=== PATIENT | female | born 1950 | race Caucasian/White ===

== ENCOUNTER 2018-12-25 21:16 | Emergency (ER) | payer OTHER, BC ==
[2018-12-25 21:28] VITALS: TEMP 98; BMI 32.8
--- NOTE | 2018-12-25 22:20 | PDOC ---
History of Present Illness <Hafsa Prater - Last Filed: 12/26/18 01:26> - General History Source: Patient Exam Limitations: No Limitations <Emil Ralph - Last Filed: 12/26/18 04:11> - General Chief Complaint: Chest Pain Stated Complaint: CHEST PAIN Time Seen by Provider: 12/25/18 21:54 - History of Present Illness Initial Comments: 12/25/18 22:00 Patient is a 68 year old female with h/o HTN, HLD, dementia, abdominal plasty, breast augmentation, c/o chest pain substernal area, left arm, across the shoulder and right neck since the morning. Pain is 7/10 and the chest pain is worse with breathing. She is unable to take a deep breath, and feels lightheaded. Patient states no injury, pushing, pulling. No recent travel. h/ o DVT right leg 4-5 years ago was on blood thinners Lovenox for 6-9 months. Famhx: mother CVA at 85 y.o, Father AR at 78 y.o PMD: Dr Greer PMHX: as above PSOCHX: occ etoh, neg cig, neg drug ALL: Codeine - itching GENERAL/CONSTITUTIONAL: [No fever or chills. No weakness. No weight change.] HEAD, EYES, EARS, NOSE AND THROAT: [No change in vision. No ear pain or discharge. No sore throat.] CARDIOVASCULAR: [No chest pain or shortness of breath.] RESPIRATORY: [No cough, wheezing, or hemoptysis.] GASTROINTESTINAL: [No nausea, vomiting, diarrhea or constipation. No rectal bleeding.] GENITOURINARY: [No dysuria, frequency, or change in urination.] MUSCULOSKELETAL: [No joint or muscle swelling or pain. No neck or back pain.] SKIN AND BREASTS: [No rash or easy bruising.] NEUROLOGIC: [No headache, vertigo, loss of consciousness, or loss of sensation.] PSYCHIATRIC: [No depression or anxiety.] ENDOCRINE: [No increased thirst. No abnormal weight change.] HEMATOLOGIC/LYMPHATIC: [No anemia, easy bleeding, or history of blood clots.] ALLERGIC/IMMUNOLOGIC: [No hives or skin allergy. No latex allergy.] GENERAL: [The patient is awake, alert, and fully oriented, in no acute distress. ] HEAD: [Normal with no signs of trauma.] EYES: [Pupils equal, round and reactive to light, extraocular movements intact, sclera anicteric, conjunctiva clear.] ENT: [Ears normal, nares patent, oropharynx clear without exudates. Moist mucous membranes.] NECK: [Normal range of motion, supple without lymphadenopathy, JVD, or masses.] LUNGS: [Breath sounds equal, clear to auscultation bilaterally. No wheezes, and no crackles.] HEART: [Regular rate and rhythm, normal S1 and S2 without murmur, rub.] ABDOMEN: [Soft, nontender, normoactive bowel sounds. No guarding, no rebound. No masses.] EXTREMITIES: [Normal range of motion, no edema. No clubbing or cyanosis. No cords, erythema, or tenderness.] NEUROLOGICAL: [Cranial nerves II through XII grossly intact. Normal speech, normal gait.] PSYCH: [Normal mood, normal affect.] SKIN: [Warm, Dry, normal turgor, no rashes or lesions noted.] (Emil Ralph) Past History <Hafsa Prater - Last Filed: 12/26/18 01:26> - Past Medical History COPD: No HTN: Yes Other medical history: dementia - Suicide/Smoking/Psychosocial Hx Smoking History: Never smoked Have you smoked in the past 12 months: No Information on smoking cessation initiated: No Hx Alcohol Use: No Drug/Substance Use Hx: No <Emil Ralph - Last Filed: 12/26/18 04:11> - Past Medical History Allergies/Adverse Reactions: Allergies Allergy/AdvReac Type Severity Reaction Status Date / Time codeine Allergy Verified 12/25/18 21:28 - Vital Signs Last Vital Signs Temp Pulse Resp BP Pulse Ox 98.0 F 50 L 17 134/70 99 12/25/18 21:25 12/26/18 02:32 12/26/18 02:32 12/26/18 02:32 12/26/18 02:32 ED Treatment Course - LABORATORY CBC & Chemistry Diagram: 12/25/18 22:47 12/25/18 22:47 <Hafsa Prater - Last Filed: 12/26/18 01:26> - LABORATORY CBC & Chemistry Diagram: 12/25/18 22:47 12/25/18 22:47 <Emil Ralph - Last Filed: 12/26/18 04:11> - ADDITIONAL ORDERS Additional order review: Laboratory Results 12/26/18 12/25/18 12/25/18 03:20 22:47 22:47 PT with INR INR D-Dimer 659 H Sodium 137 Potassium 3.7 Chloride 104 Carbon Dioxide 23 Anion Gap 10 BUN 26 H Creatinine 0.8 Creat Clearance w eGFR 71.55 Random Glucose 99 Calcium 9.4 Total Bilirubin 0.5 AST 28 ALT 45 Alkaline Phosphatase 140 H Creatine Kinase 92 113 Troponin I < 0.02 < 0.02 B-Natriuretic Peptide 137.7 H Total Protein 8.3 H Albumin 4.5 12/25/18 22:47 PT with INR 11.70 INR 0.99 D-Dimer Sodium Potassium Chloride Carbon Dioxide Anion Gap BUN Creatinine Creat Clearance w eGFR Random Glucose Calcium Total Bilirubin AST ALT Alkaline Phosphatase Creatine Kinase Troponin I B-Natriuretic Peptide Total Protein Albumin 12/25/18 22:47 RBC 4.23 MCV 91.1 MCHC 34.0 RDW 13.2 MPV 7.8 Neutrophils % 58.8 Lymphocytes % 29.5 Monocytes % 8.0 Eosinophils % 2.8 Basophils % 0.9 - RADIOLOGY Radiology Studies Ordered: Category Date Time Status CHEST CTA [CT] Stat CT Scan 12/26/18 00:08 Taken CHEST PA & LAT [RAD] Stat Radiology 12/25/18 22:22 Taken - Medications Given in the ED: ED Medications Discontinued Medications Generic Name Dose Route Start Last Admin Trade Name Yash PRN Reason Stop Dose Admin Aspirin 162 mg 12/25/18 22:28 12/25/18 23:09 Asa - PO 12/25/18 22:29 162 mg ONCE ONE Administration Sodium Chloride 1,000 ml 12/25/18 22:22 12/25/18 23:08 Normal Saline - IV 12/25/18 22:23 1,000 ml ONCE ONE Administration Medical Decision Making <Hafsa Prater - Last Filed: 12/26/18 01:26> <Emil Ralph - Last Filed: 12/26/18 04:11> - Medical Decision Making 12/26/18 01:26 Patient Name: LANE FLEMING THIS IS A PRELIMINARY REPORT FROM [facility] DATE OF SERVICE: 2018-12-26 00:24:26 IMAGES: [id number] EXAM: CHEST CTA HISTORY: Shortness of breath COMPARISON: None. FINDINGS: There is no PE or dissection. Heart size is normal. The trachea and bronchi are patent. There is no pleural or pericardial effusion. The lungs are clear. No fractures identified. The upper abdominal structures are normal. IMPRESSION: No evidence of pathology (Hafsa Prater) 12/25/18 22:00 Patient is a 68 year old female with h/o HTN, HLD, dementia, abdominal plasty, breast augmentation, c/o chest pain substernal area, left arm, across the shoulder and right neck since the morning. Pain is 7/10 and the chest pain is worse with breathing. She is unable to take a deep breath, and feels lightheaded. Patient states no injury, pushing, pulling. No recent travel. h/ o DVT right leg 4-5 years ago was on blood thinners Lovenox for 6-9 months. Famhx: mother CVA at 85 y.o, Father AR at 78 y.o DDX: PE, atypical chest pain, GI chest pain Labs, including troponin and d-dimer EKG, Aspirin Repeat troponin VSS EKG: SR rate 59, NAD, no ST-T wave changes Labs noted elevated d-dimer will do CT of chest. 12/26/18 01:31 Patient Full Name: BERNADETTE SHERMAN Patient Accession No: [id number] Patient : [id number] Reason for Exam: sob Referring Physician: Patient Name: LANE FLEMING THIS IS A PRELIMINARY REPORT FROM [facility] DATE OF SERVICE: 2018-12-26 00:24:26 IMAGES: [id number] EXAM: CHEST CTA HISTORY: Shortness of breath COMPARISON: None. FINDINGS: There is no PE or dissection. Heart size is normal. The trachea and bronchi are patent. There is no pleural or pericardial effusion. The lungs are clear. No fractures identified. The upper abdominal structures are normal. IMPRESSION: No evidence of pathology One or more of the following dose reduction techniques were used: automated exposure control, adjustment of the mA and/or kV according to patient size, use of iterative reconstructive technique. THIS DOCUMENT HAS BEEN ELECTRONICALLY SIGNED Job Barnett MD 12/26/2018 00:58 SANJANA Henriquez Please call [facility] [phone] ([phone]) with questions. INTERPRETING RADIOLOGIST: Jayden Barnett MD Electronically Signed: Dec 26, 2018 12:59AM EDT 12/26/18 04:09 Repeat troponin negative patient feels improved. I discussed the physical exam findings, ancillary test results and final diagnoses with the patient. I answered all of the patient's questions. The patient was satisfied with the care received and felt comfortable with the discharge plan and treatment plan. The Patient agrees to follow up with the primary care physician within 24-72 hours. (Emil Ralph) *DC/Admit/Observation/Transfer <Hafsa Prater - Last Filed: 12/26/18 01:26> <Emil Ralph - Last Filed: 12/26/18 04:11> Diagnosis at time of Disposition: Chest pain Qualifiers: Chest pain type: unspecified Qualified Code(s): R07.9 - Chest pain, unspecified - Discharge Dispostion Disposition: HOME Condition at time of disposition: Stable - Referrals Referrals: Bairon Orta MD [Primary Care Provider] - - Patient Instructions Printed Discharge Instructions: DI for Atypical Chest Pain Additional Instructions: Your Discharge Instructions: You must call primary care physician within 24 hours to arrange follow-up. Return to the Emergency Department with any new, persistent or worsening symptoms, for fever, chills, SOB, dizziness or any other concerning changes that may occur. Must follow-up with your supervisor rough end in 1-2 days. - Post Discharge Activity
[2018-12-25] MEDS ORDERED: SODIUM CHLORIDE 0.9% 500 ML INFUS.BAG IV ONE (22:22)
[2018-12-25] MEDS ORDERED: ASPIRIN 81 MG CHEWABLE TABLETS PO ONE (22:28)
[2018-12-25 22:59] LABS: BASO % 0.9 % (0-2.0); EOS % 2.8 % (0-4.5); HEMATOCRIT 38.5 % (32.4-45.2); HEMOGLOBIN 13.1 GM/dL (10.7-15.3); LYMPH % 29.5 % (8-40); MEAN CELL VOLUME 91.1 fl (80-96); MEAN PLT VOLUME 7.8 fl (7.5-11.1); NEUT % 58.8 % (42.8-82.8); PLATELET COUNT 365 K/MM3 (134-434); RBC 4.23 M/mm3 (3.60-5.2); RDW 13.2 % (11.6-15.6); WHITE BLOOD COUNT 8.6 K/mm3 (4.0-10.0)
[2018-12-25 23:05] LABS: INR 0.99 (0.83-1.09); PROTHROMBIN TIME (PATIENT) 11.7 SEC (9.7-13.0)
[2018-12-25] MEDS ORDERED: ASPIRIN 81 MG CHEWABLE TABLETS ONE (23:05)
[2018-12-25 23:23] LABS: ALBUMIN 4.5 g/dl (3.4-5.0); ALK PHOS 140 U/L (45-117); ANION GAP 10 MMOL/L (8-16); BILIRUBIN,TOTAL 0.5 mg/dL (0.2-1); BLOOD UREA NITROGEN 26 mg/dL (7-18); CALCIUM 9.4 mg/dL (8.5-10.1); CHLORIDE 104 mmol/L (98-107); CO2 23 mmol/L (21-32); CREATININE 0.8 mg/dL (0.55-1.3); GLUCOSE,RANDOM 99 mg/dL (74-106); N-TERMINAL BNP 137.7 pg/ml (5-125); POTASSIUM 3.7 mmol/L (3.5-5.1); SGOT/AST 28 U/L (15-37); SGPT/ALT 45 U/L (13-61); SODIUM 137 mmol/L (136-145); TOT PROT 8.3 g/dl (6.4-8.2)
[2018-12-26 03:51] VITALS: BP 134/70; PULSE 50
--- NOTE | 2018-12-27 11:00 | EKG ---
Test Reason : Blood Pressure : / mmHG Vent. Rate : 058 BPM Atrial Rate : 058 BPM P-R Int : 174 ms QRS Dur : 102 ms QT Int : 430 ms P-R-T Axes : 000 018 059 degrees QTc Int : 422 ms SINUS BRADYCARDIA OTHERWISE NORMAL ECG NO PREVIOUS ECGS AVAILABLE Confirmed by MD Alex, He ([id number]) on 12/27/2018 10:59:36 AM Referred By: Confirmed By:He Johnson MD
== END 2018-12-26 04:17 | disposition home or self-care (01) ==
LOC: JER 21:16
DX: R07.9 Chest pain, unspecified (principal); F03.90 Unspecified dementia, unspecified severity, without behavioral disturbance, psychotic disturbance, mood disturbance, and anxiety; I10 Essential (primary) hypertension; E78.5 Hyperlipidemia, unspecified; Z98.890 Other specified postprocedural states
CPT/HCPCS: 36415; 71046-TC-FY; 71275-TC; 80053; 82550; 83880; 84484; 85025; 85379; 85610; 93005; 93010; 99284-25